=== PATIENT | male | born 1945 | race Caucasian/White ===

== ENCOUNTER 2021-03-09 19:43 | Inpatient (IN) | payer MEDICARE, OTHER ==
[~2021-03-09] VITALS: Ht 177.8 cm; Wt 68.7 kg
[2021-03-09] MEDS ORDERED: DONE10TA44 PO (19:58)
[2021-03-09] MEDS ORDERED: QUET25TA PO (19:58)
[2021-03-09] MEDS ORDERED: SERT50TA PO (19:58)
[2021-03-09] MEDS ORDERED: QUET50TA PO (19:58)
--- NOTE | 2021-03-09 19:58 | NUR ---
Patient placed in room 2b. Patient A/Ox2. calm and cooperative with no distress noted.
[2021-03-09] MEDS ORDERED: LORAZEPAM 0.5 MG TABLET PO PRN (20:45)
[2021-03-09] MEDS ORDERED: MAGNESIUM HYDROXIDE 30 ML LIQUID UDC PO PRN (20:45)
[2021-03-09] MEDS ORDERED: MAG HYDROX/AL HYDROX/SIMETH 30 ML LIQUID UDC PO PRN (20:45)
[2021-03-09] MEDS ORDERED: ACETAMINOPHEN 325 MG TABLET PO PRN (20:45)
--- NOTE | 2021-03-09 20:45 | NUR ---
Transfered to 3rd floor via wheelchair to 301 psych overflow.
[2021-03-09] MEDS: ZOLPIDEM 5 MG TABLET PO PRN (21:22)
--- NOTE | 2021-03-09 23:22 | NUR ---
Admitted from ER a 75 yr old male with admitting diagnosis of psychosis. Hx of dementia, Alzheimer's, HTN,Colon Ca with resection, Back surgery Patient in with daughter, was able to do assessment with daughter. Patient speaks Greek only. VSS. Calm and quiet.Cooperative. Patient's ambulates to the BR without difficulty. Voiding well.Skin intact. Fall precautions maintained. Siderails up for safety. Sitter at bedside. Tolerated po meds well. No behavioral issues noted. No signs of agitation or restlessness. Will monitor patient.
--- NOTE | 2021-03-10 03:29 | NUR ---
Gym Instructor went to the 3rd floor to assess this patient .The Blue Phone was used for an hall supervisor in Romansh. Copy Clerk # [id number]. This patient was confused and an attempt was made to reorient him to the environment and to encourage him to take medication as ordered. The patient refuses to eat or take any medications from the staff. Sitting at the side of the bed, the patient is wide awake but calm, no aggression noted. There is a 1:1 sitter at this bedside for safety. Plan to monitor this patient for compliance and any behavioral escalation. No acute issues at this time.
--- NOTE | 2021-03-10 07:30 | NUR ---
Patient received in bed with 1:1 sitter at bedside for safety. Patient is alert and oriented to self. Denies hallucinations at this time. No acute distress noted at this time. Call light and personal belongings within easy reach. Will continue to monitor.
[2021-03-10] MEDS: DONEPEZIL 10 MG TABLET PO SCH (08:29)
--- NOTE | 2021-03-10 09:49 | NUR ---
Firearms Report: Global Sales Executive completed and submitted a [employer] firearms report for 5150 grave disability certifications. A copy of report has been placed in patient chart.
--- NOTE | 2021-03-10 11:18 | NUR ---
CASA Initial Discharge Plan: Pt resides at home [address] [place] [address] with his and daughter. Patient's Son/DPOA Bachar Molly ([phone]) is involved in the patient's care. CASA will continue to work with patient, family, and MD to ensure a safe and proper discharge plan.
--- NOTE | 2021-03-10 11:19 | NUR ---
CASA Family/DPOA Contact: CASA met with patient's Son/DPOA Raeann Jerrylauren ([phone]) who is involved in the patient's care. DPOA documents have been received and the copy has been placed in the patient's chart. CASA discussed placement options with Raeann such as assisted living and intermediate facilities. Raeann stated that they are in the process of hopefully moving back to [facility] and the placement will be temporary.
--- NOTE | 2021-03-10 11:21 | NUR ---
CASA Coordination of Care: CASA received a call from Taylor Sanders from [facility] (P [phone] F [phone]) requesting H&P, Medication List and Facesheet. Taylor is assisting the patient's family in applying for an Assisted Living Waiver for potential assisted living placement. CASA informed will fax once documents are ready.
--- NOTE | 2021-03-10 11:30 | NUR ---
Treatment Plan: Pt refused to sign treatment plan due to disorganized thought process.
[2021-03-10 12:34] LABS: *BILIRUBIN,URIN NEGATIVE (NEGATIVE); *CLARITY,URINE CLEAR (CLEAR); *COLOR,URINE YELLOW (YELLOW); *KETONES,URINE 1+ (NEGATIVE); *UROBILINOGEN,URINE 0.2 E.U./dl (NORMAL); LEUKOCYTE ESTERASE ,URINE NEGATIVE (NEGATIVE); NITRITE, URINE NEGATIVE (NEGATIVE); UGLUCOSE NEGATIVE (NEGATIVE)
--- NOTE | 2021-03-10 12:43 | NUR ---
CASA Note: CASA Wagoner and Shaylee met with the patient and family with Dr. Ceja. Dr. Ceja discussed treatment and discharge plan. Patient's son,Jose Cary explained that they are going to be flying to [place] possibly March 23, [address] Ceja discussed the possibility of stabilizing the patient until their trip date. Also discussed the possibility if flight gets postponed or delayed, we will help place in a SNF.
[2021-03-10 12:53] LABS: *BLOOD, URINE TRACE (NEGATIVE)
[2021-03-10] MEDS ORDERED: LORAZEPAM 1 MG TABLET PO PRN (13:00)
[2021-03-10 14:53] LABS: BACTERIA,URINE FEW /HPF (NONE SEEN); SQUAMOUS EPITHELIAL CELL,UR FEW /HPF (NONE SEEN); WBC,URINE 0-3 /HPF (0-3)
[2021-03-10 16:00] VITALS: BP 144/66
[2021-03-10] MEDS: QUETIAPINE FUMARATE 25 MG TABLET PO SCH ×2 (17:17→20:20)
--- NOTE | 2021-03-10 18:05 | NUR ---
RECEIVED PATIENT FROM THIRD FLOOR TO [facility] 139 A BY WHEEL CHAIR WITH HIS TWO DAUGHTERS AT HIS BEDSIDE ASSISTED INTO BED MADE COMFORTABLE PATIENT IS ALERT WITH LANGUAGE BARRIERS SPEAKS ONLY KHMER HIS DAUGHTER ASSISTED WITH ORIENTING HIM TO HIS NEW ROOM HE IS ABLE 6TO WALK WITH SLOW STEADY GAIT.VISITING HOURS AND UNIT PROTOCOL EXPLAINED TO HIS DAUGHTERS WILL CONTINUE TO OBSERVE AND PROVIDE WITH SAFE AND THERAPEUTIC ENVIRONMENT.
[2021-03-10 18:30] VITALS: BP 155/79
[2021-03-10 20:14] VITALS: BP 140/74
[2021-03-10] MEDS: ZOLPIDEM 5 MG TABLET PO PRN (23:06)
--- NOTE | 2021-03-10 23:06 | NUR ---
PATIENT IN BED RESTING NOTED THAT HE WAS STILL AWAKE GAVE HIM AMBIEN ORDERED AND HE WAS COMPLIANT MADE HIM COMFORTABLE WILL OBSERVE.
--- NOTE | 2021-03-11 06:44 | NUR ---
PATIENT IS AWAKE ALERT AND COOPERATIVE WAS SHOWERED AND CLOTHING CHANGED BACK INTO HIS ROOM AT THIS TIME MADE COMFORTABLE NO BEHAVIOR ISSUES AT THIS TIME.
[2021-03-11 07:30] VITALS: BP 131/83
[2021-03-11 07:55] LABS: HEMATOCRIT 48.1 % (36.7-47.1); MEAN CORPUSCULAR HEMOGLOBIN 31.9 uug (23.8-33.4); MEAN CORPUSCULAR VOLUME 93.3 fL (73.0-96.2); PLATELET COUNT (AUTO) 232 K/uL (152-348)
[2021-03-11 08:07] LABS: MAGNESIUM 2.3 mg/dL (1.8-2.4); PHOSPHOROUS 3.2 mg/dL (2.5-4.9); POTASSIUM 3.6 mmol/L (3.5-5.1)
[2021-03-11 08:13] LABS: THYROID STIMULATING HORMONE 0.836 mIU/mL (0.358-3.740)
[2021-03-11] MEDS: DONEPEZIL 10 MG TABLET PO SCH (08:50)
[2021-03-11] MEDS: SERTRALINE HCL 50 MG TABLET PO SCH (08:50)
[2021-03-11] MEDS: QUETIAPINE FUMARATE 25 MG TABLET PO SCH ×3 (08:50→20:43)
--- NOTE | 2021-03-11 09:34 | NUR ---
SW Coordination of Care: SW received a call from Taylor Sanders from [facility] (P [phone] F [phone]) requesting H&P, Medication List and Facesheet. This SW sent clinicals per pt's DPOA request.
--- NOTE | 2021-03-11 11:04 | NUR ---
SW Family Contact: This SW received a phone call from pt's son Raeann ([phone]) and stated that he would want pt released from MHU. Son stated that he prefers pt to be on the Med-floor. Son stated pt is surrounded by aggressive pts. This SW educated son that pt is in a mental health unit and son was not understanding. He stated that he wants pt back home and he has caregivers at home that can manage pt. Son requested to speak to Dr. Ceja and this SW notified Dr. Ceja.
[2021-03-11 16:44] VITALS: BP 133/79
[2021-03-11 20:00] VITALS: BP 138/66
--- NOTE | 2021-03-12 06:15 | NUR ---
GPS: Remain uncooperative with staff refused all due medications last night and this morning. patient had episode of hallucination ,reported via 1:1 sitter patient through bed sheet and pillow to room mate bed and praying (kirsten luna). Removed patient from his room and kept him in lorelei chair near nursing station for safety. no sleep through the night. noelleien offered for sleep but patient refused. continue on 1:1 sitter @ bed side for safety.
[2021-03-12 07:30] VITALS: BP 148/86
--- NOTE | 2021-03-12 07:46 | NUR ---
Discharge Note: Patient will be discharged AMA back home located at [address] [place] [address]; ([phone]). Patients jayda PEREZ ([phone]) will continuous pickling line pickler helper pt at 8AM. Patient is alert and oriented x2 and is aware and agreeable with discharge plan. Patient denies suicidal or homicidal ideation. Patient denies visual/auditory hallucinations. Patient will be following up with his primary physician Dr. Danilo Styles and Psychiatrist Dr. Sheryl Penny. Patients CHRIS will be making the arrangements. Patients jayda PEREZ stated pt has a caregiver at home. Patients jayda PEREZ stated they will be flying to [place] on March 23 for pt to live there permanently and they have Assisted Living arranged for him there. Patient presented with euthymic mood and congruent affect.
[2021-03-12] MEDS: QUETIAPINE FUMARATE 25 MG TABLET PO SCH (08:43)
[2021-03-12] MEDS: SERTRALINE HCL 50 MG TABLET PO SCH (08:43)
[2021-03-12] MEDS: DONEPEZIL 10 MG TABLET PO SCH (08:43)
--- NOTE | 2021-03-12 08:45 | NUR ---
Gps/Rn Surgical Pcu- Patient kept with 1:1 Nursing supervision for safety JKept up in his lorelei-chair till daughter Marium comes to get him. Patient was resistive to am care, difficulty following directions., but when his daughter Marium came in to get him, he stood up and sat in his wheel chair, .Marium (daughter) was informed of his behavior this am, and had been refusing am meds, Discharged to home via private car accomapanied by his daughter Marium. Patient in no signs of any distress.
== END 2021-03-12 08:45 | disposition left against medical advice (07) | DRG 885 ==
LOC: ER 19:43 → GPSOV3 20:39 → GPS 03-10 18:05
PROVIDERS: ADMIT Psychiatry & Neurology Psychiatry; ATTEND Registered Nurse
DX: F29 Unspecified psychosis not due to a substance or known physiological condition (principal); F02.81 Dementia in other diseases classified elsewhere, unspecified severity, with behavioral disturbance; G30.9 Alzheimer's disease, unspecified; G89.29 Other chronic pain; I10 Essential (primary) hypertension; Z85.038 Personal history of other malignant neoplasm of large intestine; Z90.49 Acquired absence of other specified parts of digestive tract; F32.9 Major depressive disorder, single episode, unspecified; Z73.6 Limitation of activities due to disability
CPT/HCPCS: 36415; 83735; 84100; 84443; 85025; 93005; A4663